=== PATIENT | female | born 1965 | race Caucasian/White ===

== ENCOUNTER 2018-04-28 06:27 | Inpatient (IN) ==
[2018-04-20 11:28] LABS: HEMATOCRIT 41.7 % (37.0-47.0); HEMOGLOBIN 13.7 g/dL (12.0-16.0); MCH 28.6 PG (27-31); MCHC 32.9 g/dL (33-37); MCV 87.1 FL (81-99); MPV 8.9 FL (7.4-10.4); RBC 4.79 XMIL (4.2-5.4); RDW 12.5 % (11.5-14.5); WBC 6.63 X1000 (4.8-10.8)
[2018-04-20 11:50] LABS: AGAP 15; BUN 8 mg/dL (8-22); CALCIUM 9.2 mg/dL (8.8-10.2); CHLORIDE 104 mmol/L (98-107); COSMO 281; CREATININE 0.5 mg/dL (0.5-0.9); ESTIMATED GFR > 60; GLUCOSE 88 mg/dL (70-104); POTASSIUM 4.5 mmol/L (3.5-5.1); SODIUM 142 mmol/L (136-145); TCO2 23 mmol/L (25-35)
--- NOTE | 2018-04-20 12:48 | EKG Report ---
Test Performed on : 04/20/2018 10:02:34 AM Test Reason : PAT Blood Pressure : / mmHG Vent. Rate : 076 BPM Atrial Rate : 076 BPM P-R Int : 174 ms QRS Dur : 094 ms QT Int : 370 ms P-R-T Axes : 061 075 038 degrees QTc Int : 416 ms Normal sinus rhythm. Nonspecific T wave abnormality Abnormal ECG When compared with ECG of 27-JUN-2017 17:22, QT has shortened Confirmed by Luis HOLT, Cristhian Adorno ([id number]) on 04/20/2018 3:27:03 PM
[2018-04-28] MEDS ORDERED: SENSORCAINE-MPF 0.5%/EPI 1:200,000 ONE (06:39)
[2018-04-28] MEDS ORDERED: LR 1,000 ML ONE ×2 (06:39→07:06)
[2018-04-28] MEDS ORDERED: XYLOCAINE-MPF 2% ONE (06:47)
[2018-04-28] MEDS ORDERED: QUELICIN (DOSE) ONE (06:47)
[2018-04-28] MEDS ORDERED: DIPRIVAN 1% ONE (06:47)
[2018-04-28] MEDS ORDERED: FENTANYL ONE ×2 (06:48→08:45)
[2018-04-28] MEDS ORDERED: VERSED ONE (06:49)
[2018-04-28] MEDS ORDERED: PEPCID ONE (07:05)
[2018-04-28] MEDS ORDERED: INVANZ 1 GM/NS 1 GM/50 ML IVPB ONE (07:06)
[2018-04-28] MEDS ORDERED: TRANSDERM-SCOP ONE (07:06)
[2018-04-28] MEDS ORDERED: REGLAN ONE (07:06)
[2018-04-28] MEDS ORDERED: ENTEREG ONE (07:06)
[2018-04-28] MEDS ORDERED: VALIUM ONE (07:06)
[2018-04-28] MEDS ORDERED: ZEMURON ONE (07:55)
[2018-04-28] MEDS ORDERED: OFIRMEV 1000 MG/ISOTONIC SOLN 1,000 MG/100 ML BOTTLE ONE (08:03)
[2018-04-28] MEDS ORDERED: DECADRON ONE (08:31)
[2018-04-28] MEDS ORDERED: ZOFRAN ONE (08:31)
[2018-04-28 09:02] LABS: URINE SOURCE CATH
[2018-04-28 09:17] LABS: BILIRUBIN URINE NEGATIVE (NEGATIVE); BLOOD URINE TRACE (NEGATIVE); COLOR YELLOW; GLUCOSE URINE NEGATIVE (NEGATIVE); KETONE URINE NEGATIVE (NEGATIVE); LEUKOCYTES URINE NEGATIVE (NEGATIVE); NITRITE URINE NEGATIVE (NEGATIVE); PROTEIN URINE TRACE mg/dL (NEGATIVE); SP GRAVITY URINE 1.017; TURBIDITY URINE CLEAR (CLEAR); UROBILINOGEN URINE NORMAL (NORMAL)
[2018-04-28] MEDS ORDERED: ROBINUL ONE (09:17)
[2018-04-28 09:18] LABS: UR EPITHELIAL CELLS <10 /HPF (<10); URINE BACTERIA NEGATIVE /HPF; URINE RBC <10 /HPF (<10); URINE WBC <10 /HPF (<10)
[2018-04-28] MEDS ORDERED: NEOSTIGMINE ONE (09:23)
[2018-04-28] MEDS: DILAUDID ONE ×2 (09:54→10:07)
--- NOTE | 2018-04-28 09:56 | OPERATIVE NOTE ---
PROCEDURE DATE: 04/28/2018 PROCEDURE PERFORMED: Laparoscopic-assisted resection of the cecum and portion of the ascending colon with ileocolostomy. SURGEON: Ashish White MD. HOSIERY MATER: Hector Johnson RN. PREOPERATIVE DIAGNOSIS: Villous lesion of the cecum and adenomatous polyp of the ascending colon. POSTOPERATIVE DIAGNOSIS: Villous lesion of the cecum and adenomatous polyp of the ascending colon. DESCRIPTION OF PROCEDURE: After satisfactory general endotracheal anesthesia was achieved, the abdomen is prepped and draped in a sterile fashion. We anesthetized the skin at the base of the umbilicus, made a small vertical incision and introduced a 5 trocar Optiview technique. We insufflated through this trocar. Under direct visualization, we used a trocar in the right lower quadrant and one in the left upper quadrant. We then placed the patient in Trendelenburg and then turned her to the left. We then incised along the white line of Toldt using the LigaSure. We extended our incision in the retroperitoneum caudad to free up the ilium and then we placed the patient in reverse Trendelenburg and dissected the white line of Toldt up to the hepatic flexure. We mobilized the hepatic flexure. We identified the tattooed area in the proximal ascending colon. The colon was then mobilized medially until we could see the duodenum. So, we felt the colon was adequately mobilized now to bring the lesion to the skin. We then flattened the patient and marked the skin transversely in the right lower quadrant for 7 cm. We anesthetized the skin with 0.5 Marcaine with epinephrine. We made a transverse incision and carried our incision through the subcutaneous tissue through Mitzi's fascia. We divided the external oblique with Haven's after incising the external oblique aponeurosis. We spread the external oblique. We then spread the internal oblique. We then incised the medial aspect of the transversus and exposed the underlying peritoneum. We then opened the peritoneum and extended the skin incision. We placed some Edwards retractors. We then were able to grasp the colon right at the area that was tattooed and delivered the cecum, distal ilium, and ascending colon out of the abdominal cavity onto the abdominal wall. We then cleaned the fat off the terminal ileum and divided the mesentery and then used a JEFFERY blue cartridge 60 mm long and stapled and divided the ilium. We then cleaned off the ascending colon approximately 5 to 6 cm proximal to the tattooed area and divided it also with a JEFFERY 60 blue cartridge. We then divided the mesentery using the LigaSure until we reached the apex of the mesentery where we clamped and divided the tissue and oversewed the vessels with 2- 0 silk suture ligatures. The specimen was handed off. We placed 3-0 silks in the mesentery to reapproximate it. We then had the terminal ilium laid [id number] to the ascending colon, and placed a 3-0 silk to approximate those distally. We then cut off the corners of the bowel, both the small bowel and the colon. Introduced a JEFFERY blue cartridge 60 mm long and did a [id number] stapled anastomosis. The open end of the bowel was then grasped with Allis, and we used a TA 60 blue cartridge to staple off the open end of the bowel. We then oversewed the distal staple lines with interrupted 3-0 silks in a Lembert fashion. This oversewed the staple line adequately. There was a good connection between the colon and small bowel. 3-0 silk was used and placed proximally and then anastomosis to take the tension off the staple line on the medial side. We then reduced the anastomosis back into the abdominal cavity. I did open the specimen, and we identified the large villous lesion of the cecum as well as a small adenomatous flat lesion in the ascending colon. We changed gloves at this point. We closed the peritoneum with running 2-0 Polysorb. We closed the internal oblique muscle with a running 2-0 Polysorb. We closed the external oblique muscle and aponeurosis with 0 Polysorb [id number] stitches. We irrigated out subcutaneous tissue and used 3-0 Polysorb in the subcutaneous tissue and Mitzi's fascia, then closed the skin with 4-0 Polysorb subcuticular stitch. We re-insufflated and looked inside. Hemostasis was satisfactory. The anastomosis was identified. We aspirated what fluid had collected. We then decompressed the abdominal cavity and removed all our trocars. The skin of each small 5 mm trocar site was closed with a 4-0 Polysorb subcuticular stitches. Sterile OpSite dressings were applied. She tolerated it well. She was sent to the recovery room in satisfactory condition. cc: MD Vikas Mistry MD
[2018-04-28] MEDS ORDERED: TORADOL ONE (10:00)
[2018-04-28] MEDS ORDERED: D5 1/2 NS + KCL 20 MEQ 1,000 ML ONE (10:02)
[2018-04-28] MEDS ORDERED: ULTRAM PO PRN (11:56)
[2018-04-28] MEDS: DILAUDID IV PRN ×3 (12:49→21:01)
[2018-04-28] MEDS: OFIRMEV 1000 MG/ISOTONIC SOLN 1,000 MG/100 ML BOTTLE IV SCH ×2 (13:47→21:00)
[2018-04-28] MEDS: D5 1/2 NS + KCL 20 MEQ 1,000 ML IV SCH ×2 (13:52→21:10)
[2018-04-28] MEDS: PERIDEX MT SCH (20:59)
[2018-04-28] MEDS: LOVENOX SUBQ SCH (20:59)
[2018-04-28] MEDS: BENADRYL PO SCH ×2 (21:00→21:25)
[2018-04-28] MEDS: MELATONIN PO SCH (21:00)
[2018-04-28] MEDS: NEURONTIN PO SCH (21:00)
[2018-04-29] MEDS: OFIRMEV 1000 MG/ISOTONIC SOLN 1,000 MG/100 ML BOTTLE IV SCH ×2 (03:09→08:53)
[2018-04-29] MEDS: PRILOSEC PO SCH (06:53)
[2018-04-29 07:06] LABS: HEMOGLOBIN 11.7 g/dL (12.0-16.0); MCH 28.6 PG (27-31); MCHC 32.5 g/dL (33-37); MPV 8.5 FL (7.4-10.4); RBC 4.09 XMIL (4.2-5.4); RDW 12.4 % (11.5-14.5); WBC 10.79 X1000 (4.8-10.8)
[2018-04-29] MEDS: DILAUDID IV PRN ×3 (07:23→16:44)
[2018-04-29 07:40] LABS: AGAP 8; BUN 5 mg/dL (8-22); CALCIUM 8.3 mg/dL (8.8-10.2); CHLORIDE 106 mmol/L (98-107); COSMO 274; CREATININE 0.4 mg/dL (0.5-0.9); ESTIMATED GFR > 60; GLUCOSE 113 mg/dL (70-104); POTASSIUM 4.1 mmol/L (3.5-5.1); SODIUM 138 mmol/L (136-145); TCO2 24 mmol/L (25-35)
[2018-04-29] MEDS: D5 1/2 NS + KCL 20 MEQ 1,000 ML IV SCH ×2 (08:16→20:25)
[2018-04-29] MEDS: LOPRESSOR PO SCH (08:53)
[2018-04-29] MEDS: PERIDEX MT SCH ×2 (08:53→22:16)
[2018-04-29] MEDS: NEURONTIN PO SCH ×2 (08:53→22:17)
[2018-04-29] MEDS: ENTEREG PO SCH ×2 (08:53→22:17)
[2018-04-29] MEDS: PROZAC PO SCH (08:53)
--- NOTE | 2018-04-29 14:49 | GENERAL SURGERY PROGRESS NOTE ---
DATE: 04/29/2018 Navya is doing generally well. She has taken liquids without nausea. No flatus yet. She has been up and ambulating. She is afebrile, heart rate 59, blood pressure 119/48. Her bandage is dry. White count 10,900, hemoglobin 11.7. Chemistry is fine. The plan is to cut her IV rate down to 60, take her Guo out, and will advance her to full liquids in the morning. cc: Ashish White MD
[2018-04-29] MEDS: ZOFRAN IV PRN (16:44)
[2018-04-29] MEDS: MELATONIN PO SCH (22:16)
[2018-04-29] MEDS: LOVENOX SUBQ SCH (22:17)
[2018-04-29] MEDS: BENADRYL PO SCH (22:17)
[2018-04-30] MEDS: ZOFRAN IV PRN (04:24)
[2018-04-30] MEDS: PRILOSEC PO SCH ×2 (04:24→06:25)
[2018-04-30] MEDS: DILAUDID IV PRN ×6 (04:24→22:04)
[2018-04-30] MEDS: PROZAC PO SCH (09:13)
[2018-04-30] MEDS: ENTEREG PO SCH ×2 (09:13→20:20)
[2018-04-30] MEDS: NEURONTIN PO SCH ×2 (09:13→20:20)
[2018-04-30] MEDS: LOPRESSOR PO SCH (09:13)
[2018-04-30] MEDS: PERIDEX MT SCH ×2 (09:13→20:20)
[2018-04-30] MEDS: D5 1/2 NS + KCL 20 MEQ 1,000 ML IV SCH (11:01)
[2018-04-30] MEDS ORDERED: D5 1/2 NS + KCL 20 MEQ 1,000 ML IV SCH (17:15)
--- NOTE | 2018-04-30 19:38 | GENERAL SURGERY PROGRESS NOTE ---
DATE: 04/30/2018 SUBJECTIVE/OBJECTIVE: She is afebrile. Heart rate 62, blood pressure 113/53. She has been taking full liquids. She has had 3 small liquid bowel movements. No flatus. Her abdomen is a bit distended. It is quiet. PLAN: The plan will be to leave her on liquids today. We will reexamine her to tomorrow before deciding about advancing her diet. cc: Ashish White MD
[2018-04-30] MEDS: LOVENOX SUBQ SCH (20:20)
[2018-04-30] MEDS: BENADRYL PO SCH (20:20)
[2018-04-30] MEDS: MELATONIN PO SCH (20:20)
[2018-05-01] MEDS: DILAUDID IV PRN ×5 (06:01→21:25)
[2018-05-01] MEDS: PRILOSEC PO SCH (06:02)
[2018-05-01] MEDS: LOPRESSOR PO SCH (08:11)
[2018-05-01] MEDS: PERIDEX MT SCH ×2 (08:11→21:24)
[2018-05-01] MEDS: ATIVAN PO SCH ×3 (08:12→21:25)
[2018-05-01] MEDS: ENTEREG PO SCH ×2 (08:12→21:25)
[2018-05-01] MEDS: PROZAC PO SCH (08:12)
[2018-05-01] MEDS: NEURONTIN PO SCH ×2 (08:12→21:25)
[2018-05-01] MEDS ORDERED: SALINE LOCK IV FLUID XX ONE (09:44)
[2018-05-01] MEDS ORDERED: NORCO-7.5 PO PRN (09:45)
--- NOTE | 2018-05-01 13:48 | GENERAL SURGERY PROGRESS NOTE ---
DATE: 05/01/2018 9:45 in the morning. She is afebrile. Hemodynamics are good. She passed flatus. Her wounds are fine. The plan is to advance her to solid food and perhaps send her home tomorrow. cc: Ashish White MD
[2018-05-01] MEDS: MELATONIN PO SCH (21:24)
[2018-05-01] MEDS: LOVENOX SUBQ SCH (21:25)
[2018-05-01] MEDS: BENADRYL PO SCH (21:25)
[2018-05-02] MEDS: DILAUDID IV PRN ×2 (06:10→09:44)
[2018-05-02] MEDS: PRILOSEC PO SCH (06:10)
--- NOTE | 2018-05-02 07:17 | GENERAL SURGERY PROGRESS NOTE ---
DATE: 05/02/2018 Navya is now 4 days after a laparoscopic assisted right colon resection. She is doing generally well. She is passing flatus. She tolerated solid food satisfactorily yesterday. She is afebrile. Hemodynamics are good. Her wounds are fine. We will discharge her today. We discussed her activity. She is to return to see me in the office on Thursday, the . She is not to lift over 15 pounds. cc: Ashish White MD
[2018-05-02] MEDS: ENTEREG PO SCH (07:48)
[2018-05-02] MEDS: NEURONTIN PO SCH (07:48)
[2018-05-02] MEDS: ATIVAN PO SCH (07:49)
[2018-05-02] MEDS: LOPRESSOR PO SCH (07:49)
[2018-05-02] MEDS: PERIDEX MT SCH (07:49)
[2018-05-02] MEDS: PROZAC PO SCH (07:49)
[2018-05-02 09:40] VITALS: BP 137/65
--- NOTE | 2018-05-12 16:16 | DISCHARGE SUMMARY ---
ADMISSION DATE: 04/28/2018 DISCHARGE DATE: 05/02/2018 PRIMARY DISCHARGE DIAGNOSIS: Villous adenoma of the cecum. HISTORY: A 52-year-old, who coincidentally was found to have a villous adenoma of the cecum. Referred by [facility]. She was scheduled for laparoscopic-assisted cecal resection. HOSPITAL COURSE: Following her outpatient prep, she was admitted on the 28 of April and underwent the laparoscopic-assisted resection of the cecum and a portion of the ascending colon. Postoperatively, she did generally well. We started her on liquids on the , and we were able to advance her diet subsequently. She tolerated the liquids and the diet, and by the she was having flatus. She was tolerating food satisfactorily without nausea. Her wounds were fine. It is felt she could be discharged home. Activity was discussed. She will return to the office on Thursday, the 07 of May, for reevaluation. cc: MD Vikas Mistry MD
== END 2018-05-02 10:20 | disposition home or self-care (01) | DRG 331 ==
LOC: SURHOLD 06:27 → EDSTATUS 08:30 → 4N 10:54
PROVIDERS: ADMIT Surgery; ATTEND Surgery
CPT/HCPCS: 80048; 81001; 85027; 88307; 93005; 93010; 94761; 94799; A9270; J0131; J0330; J1100; J1170; J1335; J1650; J1885; J2250; J2405; J3010; J3480; J7120